=== PATIENT | female | born 1955 | race Caucasian/White ===

== ENCOUNTER → 2022-09-28 | Outpatient (CLI) | payer OTHER ==
[2022-09-30 16:09] LABS: HPV 16 Negative (Negative); HPV 18 Negative (Negative); HPV OTHER HR TYPES Negative (Negative)
== END ==
LOC: LAB SHORT 16:21 → LAB 16:21
PROVIDERS: Obstetrics & Gynecology
DX: Z01.419 Encounter for gynecological examination (general) (routine) without abnormal findings (principal)
CPT/HCPCS: 87624; G0145

== ENCOUNTER 2023-03-15 09:06 | Day surgery (SDC) | payer OTHER ==
[~2023-03-15] VITALS: Ht 165.1 cm; Wt 73.0 kg
[2023-03-15] VITALS (13 sets, daily range): BP systolic 98–1152; BP diastolic 55–95
--- NOTE | 2023-03-15 10:26 | NUR ---
Ambulatory in Day Surgery. History, Chart, Medications and Allergies reviewed before start of procedure. Lungs clear T/O to Auscultation. Patient confirms NPO status and agrees with scheduled surgery. Pre-Op teaching done. Pt verbalizes understanding. Patient States Post-Procedure ride home has been arranged. [facility].
--- NOTE | 2023-03-15 10:48 | NUR ---
PT DENTURES TAKEN TO PACU FOR SAFEKEEPING.
--- NOTE | 2023-03-15 13:52 | NUR ---
ARRIVAL TO UNIT PT ARRIVED TO UNIT SLIDE WITH SLIDE SHEET FROM [facility]. SMALL AMOUNT SANGUINOUS DRAINAGE ON TRACY PAD AND IN TRACY AREA. PT DENIES ANY PAIN. RESENDIZ PATENT AND DRAINING. 2L NASAL CANULA, WILL TITRATE TOLERATED. ABDOMEN SOFT TO TOUCH. TOLERATING WATER AND JELLO AT THIS TIME.
--- NOTE | 2023-03-15 17:57 | NUR ---
SHIFT SUMMARY NO ACUTE CHANGES SINCE ARRIVAL TO UNIT. CONTINUES TO DENY PAIN, TOLERATING PO WELL. RESENDIZ REMAINS PATENT. CALLING APPROPRIATLY. SCANT DRAINAGE ON TRACY PAD.
[2023-03-16 03:57] VITALS: BP 182/78
[2023-03-16 04:18] LABS: BASOPHILS ABSOLUTE AUTO 0.02 K/mm3 (0.00-0.23); BASOPHILS PERCENT AUTO 0 % (0-2); EOSINOPHILS PERCENT AUTO 0 % (0-6); Hematocrit 31.7 % (33.0-51.0); IMMATURE GRAN ABSOLUTE AUTO 0.03 K/mm3 (0.00-0.10); IMMATURE GRAN PERCENT AUTO 0 % (0-1); LYMPHOCYTES ABSOLUTE AUTO 1.41 K/mm3 (0.84-5.20); LYMPHOCYTES PERCENT AUTO 13 % (21-46); MONOCYTES ABSOLUTE AUTO 0.78 K/mm3 (0.16-1.47); MONOCYTES PERCENT AUTO 7 % (4-13); Mean Corpuscular HGB 30.5 pg (26.0-34.0); Mean Corpuscular HGB Conc 34.7 g/dL (31.5-36.5); Mean Corpuscular Volume 88 fL (80-100); Mean Platelet Volume 10.6 fL (9.1-12.4); NEUTROPHILS ABSOLUTE AUTO 8.63 K/mm3 (1.96-9.15); NEUTROPHILS PERCENT AUTO 79 % (41-73); Platelet Count 159 K/mm3 (150-400); RDW Coefficient Variation 12.9 % (11.7-14.2); RDW Standard Deviation 40.9 fL (35.1-46.3); Red Blood Cell Count 3.61 M/mm3 (3.80-5.20); White Blood Cell Count 10.87 K/mm3 (4.00-11.30)
[2023-03-16 04:59] VITALS: BP 175/70
[2023-03-16 05:33] VITALS: BP 170/74
[2023-03-16] MEDS ORDERED: Acetaminophen650 M1 PO (06:16)
[2023-03-16] MEDS ORDERED: IBU600 MG PO (06:17)
[2023-03-16] MEDS ORDERED: OXAYDO5 M1 PO (06:17)
[2023-03-16 07:26] VITALS: BP 138/62
--- NOTE | 2023-03-16 07:37 | NUR ---
SHIFT SUMMARY NOC. PT A/O X4. PT MEDICATED FOR PAIN X1 WITH RELIEF OF SYMPTOMS. BLOOD PRESSURE WAS ELEVATED AFTER PAIN. DR. PALMA AWARE SHE ROUNDED THIS AM. PT'S RESENDIZ D/C'D AT 0410. PT HAS LIGHT BLOOD IN TRACY PAD X1. PT PASSING GAS AND TOLERATING PO. AWAITING VOID POST REMOVAL OF RESENDIZ. PT RESTED WITH EYES CLOSED AND CALL LIGHT IN REACH.
--- NOTE | 2023-03-16 11:58 | NUR ---
DISCHARGE POD 1 TOTAL VAGINAL HYSTER PT HAS HAD MINIMAL DRAINAGE ON TRACY PAD, EDUCATED ON MONITORING OUTPUT. VOIDING WELL, TOLERATING DIET, NO NAUSEA. PAIN MANAGED PER EMAR. AMBULATING WELL ALL EDUCATION GONE OVER WITH PATIENT. NO FURTHER QUESTIONS.
--- NOTE | 2023-03-16 12:03 | NUR ---
DISCHARGE: PACKET PRINTED AND PT EDUCATED. E-SCRIPTS SENT TO PHARMACY. PT LEFT UNIT VIA WHEELCHAIR WITH THIS RN AT ABOUT 1140
== END 2023-03-16 11:45 | disposition home or self-care (01) ==
LOC: ORSCMMR 09:06 → SURS 09:06 → ORSCMMR 09:10 → ORD 11:00 → SURS 13:24 → ORSCMMR 03-16 11:45
PROVIDERS: Obstetrics & Gynecology
PROC: 0UT97ZZ Resection of Uterus, Via Natural or Artificial Opening (ICD-10-PCS; principal; 2023-03-15 11:00)
PROC: 0JQC0ZZ Repair Pelvic Region Subcutaneous Tissue and Fascia, Open Approach (ICD-10-PCS; principal; 2023-03-15 11:00)
DX: N81.3 Complete uterovaginal prolapse (principal); N80.03 Adenomyosis of the uterus; F17.210 Nicotine dependence, cigarettes, uncomplicated
CPT/HCPCS: 36415; 85025; 88307; 94762; A9270; J0171; J0690; J1100; J1885; J2250; J2405; J2704; J3010; J7120